=== PATIENT | male | born 1955 | race Caucasian/White ===

== ENCOUNTER 2017-03-20 16:33 | Outpatient (CLI) | payer MEDICAID | END 2017-03-20 16:34 | disposition EMS.NT | LOC: EMS 16:33 | PROVIDERS: ATTEND Surgery | DX: S01.312A Laceration without foreign body of left ear, initial encounter (principal); V59.40XA Driver of pick-up truck or van injured in collision with unspecified motor vehicles in traffic accident, initial encounter; Y92.413 State road as the place of occurrence of the external cause ==

== ENCOUNTER 2022-02-20 16:38 | Outpatient (CLI) | payer MEDICARE, MEDICAID | END 2022-02-20 16:39 | disposition short-term general hospital (02) | LOC: EMS 16:38 | DX: R41.82 Altered mental status, unspecified (principal); R51.9 Headache, unspecified; G81.94 Hemiplegia, unspecified affecting left nondominant side; R45.1 Restlessness and agitation; W19.XXXA Unspecified fall, initial encounter; Y92.000 Kitchen of unspecified non-institutional (private) residence as the place of occurrence of the external cause | CPT/HCPCS: A0425; A0427; A0888 ==

== ENCOUNTER 2022-08-02 18:38 | Outpatient (CLI) | payer MEDICARE, MEDICAID | END 2022-08-02 18:39 | disposition short-term general hospital (02) | LOC: EMS 18:38 | DX: R41.0 Disorientation, unspecified (principal); R11.10 Vomiting, unspecified; R61 Generalized hyperhidrosis | CPT/HCPCS: A0425; A0429 ==